=== PATIENT | male | born 1975 | race Caucasian/White ===

== ENCOUNTER 2016-09-09 15:32 | Outpatient (CLI) | payer SELFPAY | END 2016-09-09 15:33 | disposition critical access hospital (66) | DX: S71.131A Puncture wound without foreign body, right thigh, initial encounter (principal); W01.118A Fall on same level from slipping, tripping and stumbling with subsequent striking against other sharp object, initial encounter; Y92.009 Unspecified place in unspecified non-institutional (private) residence as the place of occurrence of the external cause | CPT/HCPCS: A0425; A0429 ==

== ENCOUNTER 2016-09-09 15:44 | Emergency (ER) | payer SELFPAY ==
[2016-09-09] MEDS ORDERED: IBUPROFEN 800 MG TABLET PO STA (16:04)
[2016-09-09] MEDS ORDERED: CEPHALEXIN 250 MG CAPSULE PO STA (16:04)
[2016-09-09] MEDS ORDERED: CEPHALEXIN 250 MG CAPSULE PO ONE (16:08)
[2016-09-09] MEDS ORDERED: IBUPROFEN 800 MG TABLET PO ONE (16:08)
== END 2016-09-09 16:37 | disposition home or self-care (01) ==
DX: S71.131A Puncture wound without foreign body, right thigh, initial encounter (principal); S70.311A Abrasion, right thigh, initial encounter; W01.118A Fall on same level from slipping, tripping and stumbling with subsequent striking against other sharp object, initial encounter; Y92.008 Other place in unspecified non-institutional (private) residence as the place of occurrence of the external cause
CPT/HCPCS: 99283; A9270